=== PATIENT | male | born 1980 | race Caucasian/White ===

== ENCOUNTER 2018-11-12 18:08 | Emergency (ER) | payer MEDICAID ==
[~2018-11-12] VITALS: Ht 180.3 cm; Wt 85.0 kg
[2018-11-12 18:14] VITALS: BP 114/68
[2018-11-12] MEDS ORDERED: HYDR28CR14 TOP (19:50)
[2018-11-12] MEDS ORDERED: PRED20TA PO ×2 (19:50→19:59)
[2018-11-12] MEDS ORDERED: triamcinolone acetonide 40mg/ml inj IM ONE (19:50)
== END 2018-11-12 20:11 | disposition home or self-care (01) ==
LOC: ER 18:09
DX: L23.7 Allergic contact dermatitis due to plants, except food (principal); Z79.899 Other long term (current) drug therapy
CPT/HCPCS: 96372; 99283; J3301

== ENCOUNTER 2019-04-13 11:31 | Emergency (ER) | payer MEDICAID ==
[~2019-04-13] VITALS: Ht 180.3 cm; Wt 86.0 kg
[~2019-04-13 11:31] MED LIST: HYDR28CR14 TOP
[2019-04-13 12:11] LABS: CLARITY,URINE SLIGHTLY CLOUDY (Clear); COLOR,URINE YELLOW (Yellow); GLUCOSE, URINE NEGATIVE (Neg); KETONES,URINE NEGATIVE (Neg); LEUKOCYTE ESTERASE ,URINE NEGATIVE (Neg); NITRITES, URINE NEGATIVE (Neg); OCCULT BLOOD,URINE NEGATIVE (Neg); PROTEIN,URINE NEGATIVE (Neg); UROBILINOGEN,URINE 0.2 E.U/dL (0.2-1.0)
[2019-04-13 12:13] LABS: UA COLLECTION TYPE CLN CATCH MIDSTREAM
[2019-04-13 12:17] LABS: MUCUS STRANDS MANY /LPF (Neg); SQUAMOUS EPITHELIAL CELL,UR FEW /LPF (FEW)
[2019-04-13 12:20] LABS: BACTERIA,URINE 1+ /HPF (Neg); RBC,URINE 0-2 /HPF (0-2); WBC,URINE 0-4 /HPF (0-4)
[2019-04-13 13:27] VITALS: BP 118/77
== END 2019-04-13 14:03 | disposition home or self-care (01) ==
LOC: ER 11:32
DX: D17.1 Benign lipomatous neoplasm of skin and subcutaneous tissue of trunk (principal); R42 Dizziness and giddiness
CPT/HCPCS: 76881; 81001; 99284